=== PATIENT | male | born 1960 | race Caucasian/White ===

== ENCOUNTER 2024-06-13 13:37 | Outpatient (AMB) | payer OTHER, SELFPAY ==
--- NOTE | 2024-06-13 13:48 | AM.OFFWIN_ITS ---
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 - The cough is worse at night and disrup ting sleep. - Concurrent symptoms include nasal moustapha estion, rhinorrhea, and productive cough with greenish sputum, without associated fever, shortness of breath, or wheeze. - The patient self-administers NyQuil fo r symptomatic relief at bedtime. - Denies prior history of allergic condi tions, does not take a daily allergy pill. - The patient is in transition between [place] health care providers and is currently without a longstanding medical adviser. Physical Exam General: Cooperative, healthy appearing, comfortable and no acute distress Orientation/consciousness: Patient oriented x3 Limitations: No limitations Head: Normal to inspection Ears: Hearing grossly normal bilaterally, external ears normal and TM's normal bilaterally Nose: Normal external nose present, Normal nares present and No nasal discharge present Face and sinus: Normal facial exam and Yes sinuses nontender Mouth: Normal oral and palatal mucosa present and moist mucous membranes Throat: Yes tonsils normal, Yes uvula midline. Posterior oropharynx erythema, cobblestoning present Eyes: Appearance normal, both eyes and all related structures Neck: Normal visual inspection Respiratory: Clear to auscultation bilaterally. Normal respiratory effort, able to speak in complete sentences, no respiratory distress, not tachypneic, no tripod positioning and no use of accessory muscles Cardiovascular: Regular rate and rhythm. Normal S1 and S2 Skin: No rashes or lesions noted Neuro: Patient oriented x3 Extremities: Normal to inspection and Yes no clubbing, cyanosis or edema PFSH Social History Patient Tobacco Use Status: Never used Tobacco Review of Systems Const All systems reviewed & are unremarkable except as noted in HPI and below Physical Exam Vital Signs: Last Vital Signs Temp 98.1 F 06/13/24 13:49 Pulse 71 06/13/24 13:49 BP 130/82 06/13/24 13:49 Pulse Ox 98 06/13/24 13:49 Oxygen Delivery Method Room Air 06/13/24 13:49 Assessment & Plan Assessment & Plan (1) URI, acute: Code(s): J06.9 - Acute upper respiratory infection, unspecified Plan: VSS, pt well appearing and PE unremarkable for erythema with cobblestoning in oropharynx. Upon evaluation of the cough for almost 3 weeks, I provided a treatment plan involving azithromycin Z-Nico to target any bacterial infection. The presence of cobblestoning in the throat guided me towards considering an allergy-related condition, so I recommended Xyzal as an antihistamine to be taken daily at bedtime. The objective is to manage potential allergies alongside the cough. The effectiveness of the antibiotic and antihistamine regimen will be assessed based on symptom resolution. These interventions should improve the patient's cough and overall symptomatology, facilitating better sleep and daytime activities. I ensured the patient understood medication acquisition and administration directions. If symptoms persist, further evaluation will be recommended. Patient was informed and verbally consented to the use of an ambient scribe for clinic note documentation during this visit Medications: New azithromycin For 250 mg dose pack: take 500 mg today (day 1), then 250 mg for 4 days (days 2-5) PO 6 tabs 0RF Coding Level of Care Code New Pt Level 3 (41803) Diagnoses URI, acute J06.9
[2024-06-13 13:49] VITALS: BP 130/82; PULSE 71; TEMP 36.7; O2SAT 98
== END 2024-06-13 14:16 | disposition home or self-care (01) ==
PROVIDERS: PCP Internal Medicine; Visit Provider Physician Assistant
DX: J06.9 Acute upper respiratory infection, unspecified (principal)

== ENCOUNTER → 2024-06-13 13:37 | Outpatient (BNVA) | payer OTHER, SELFPAY | PROVIDERS: PCP Internal Medicine; Visit Provider Physician Assistant | DX: Z13.89 Encounter for screening for other disorder (principal) ==

== ENCOUNTER 2024-08-10 14:36 | Outpatient (AMB) | payer OTHER, SELFPAY ==
--- NOTE | 2024-08-10 14:39 | AM.OFFWIN_ITS ---
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, numbness Intake Note: Pt is here today c/o Lt arm feels tingling and numbness x4days no injury noted Patient Tobacco Use Status: Never used Tobacco Allergies No Known Allergies Allergy (Verified 08/10/24 14:39) HPI HPI Comments History of Present Illness Details He presents to office with L arm numbness Ongoing for a few days with pain in triceps region He denies similar symptoms in past No PCP R hand dominant He denies overuse of arms at work but was spreading compost in garden and worsening symptoms since Triceps radiation to fingers; along ulnar side only to pinky and fing finger Pt states symptoms constant Otherwise no weakness No disruption of sleep; doesn't wake at night Worse throughout day Minimal in the morning Tried Ibupofen for it without relief No confusion, weakness, CP, SOB palpitations PFSH Social History Patient Tobacco Use Status: Never used Tobacco Review of Systems Const Denies chills, Denies fatigue, Denies fever(s) and Denies headache(s) ENT Denies vertigo, Denies dizziness and Denies headache(s) Card Denies chest pain, Denies syncope and Denies dyspnea Resp Denies dyspnea Musc Denies back pain, Denies myalgias, Denies deformity, Reports numbness and Reports tingling Skin/Breast Denies erythema, Denies rash and Denies skin swelling Neuro Denies confusion, Denies vertigo, Denies dizziness, Denies syncope, Denies headache(s), Reports numbness and Reports tingling Psych Denies confusion Endo Denies fatigue Physical Exam Vital Signs: Last Vital Signs Temp 98.1 F 08/10/24 14:43 Pulse 75 08/10/24 14:43 Resp 16 08/10/24 14:43 BP 140/78 H 08/10/24 14:43 Pulse Ox 96 08/10/24 14:43 Oxygen Delivery Method Room Air 08/10/24 14:43 BMI result Body Mass Index 34.1 General: Non-toxic, NAD. Speaking full sentences. Skin: Warm dry throughout. No obvious LUE edema, erythema or rash Eye: EOMI Neck: No c-spine ttp HENT: Airway patent. Uvula midline. No pharyngeal erythema or edema. 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 Respiratory: CTA bilaterally. No wheezes, rales or rhonchi Cardiac: RRR. No murmur. Radial pulse 2+ and equal in strength and timing bilaterally MSK: No ttp L ac joint, lateral humeral head or bicipital groove. + ttp L triceps region over soft tissue. No bony ttp L elbow. + full ROM L elbow No bony ttp L forearm, wrist or hand. 5/5 abrasive band winder strength. Pt does have sensation to L pinky. Neurology: Alert. No aphasia or facial droop. Gait without abnormality Psych: Good mood and affect Const General: No confusion Orientation/consciousness: No confusion Neuro General: No confusion Assessment & Plan Assessment & Plan (1) Radiculopathy: Code(s): M54.10 - Radiculopathy, site unspecified Qualifiers: Spinal region: unspecified Qualified Code(s): M54.10 - Radiculopathy, site unspecified Plan: + ulnar radiculopathy noted on LUE No bony ttp or direct trauma warranting imaging Symptoms constant x multiple days; no concern CP/MS cardiac etiology or CVA. Pt has no other deficit on exam Will trial ice to trcieps Medrol x 5 days for inflammation; tylenol prn No alcohol or nsaids Pt will call with cocnerns Discussed warning s/s that warrant ER eval and he is aware Medications: New methylprednisolone (Medrol) 4 mg PO DAILY 10 tabs 0RF Coding Level of Care Code Est Pt Level 3 (56582) Diagnoses Radiculopathy, unspecified spinal region M54.10 Spinal region: unspecified
[2024-08-10 14:43] VITALS: BP 140/78; PULSE 75; RESP 16; TEMP 36.7; O2SAT 96; BMI 34.1
== END 2024-08-10 15:07 | disposition home or self-care (01) ==
PROVIDERS: PCP Internal Medicine; Visit Provider Physician Assistant
DX: M54.10 Radiculopathy, site unspecified (principal)

== ENCOUNTER → 2024-08-10 14:36 | Outpatient (BNVA) | payer OTHER, SELFPAY | PROVIDERS: PCP Internal Medicine; Visit Provider Physician Assistant | DX: Z13.89 Encounter for screening for other disorder (principal) ==